=== PATIENT | male | born 1955 | race Caucasian/White ===

== ENCOUNTER 2019-06-28 15:04 | Inpatient (IN) ==
[2019-06-28] MEDS ORDERED: HYDROmorphone 2 MG/1 ML VIAL IV PRN (16:05)
[2019-06-28] MEDS ORDERED: ALBUTEROL/IPRATROPIUM 3 ML NEB RESP TX PRN (16:05)
[2019-06-28] MEDS ORDERED: KETOROLAC 15 MG/1 ML VIAL IV PRN (16:05)
[2019-06-28] MEDS ORDERED: ONDANSETRON 4 MG/2 ML VIAL IV PRN (16:05)
[2019-06-28] MEDS ORDERED: ACETAMINOPHEN 325 MG TABLET PO PRN (16:05)
[2019-06-28] MEDS ORDERED: LACTATED RINGERS 1,000 ML IV ONE (16:09)
[2019-06-28 16:53] LABS: Apearance,Urine CLOUDY (Clear); Bacteria,Urine Occasional /HPF (Few); Bilirubin,Urine Negative (Negative); Blood, Urine Large mg/dL (Negative); Glucose,Urine (UA) Negative (Negative); Ketones,Urine Negative (Negative); Mucus,Urine Occasional /LPF (Occasional); Nitrite,Urine Negative (Negative); Protein,Urine 30 MG/DL; RBC,Urine 643 /HPF (0-4); Urine Color Amber (Yellow); Urine Specific Gravity > 1.060 (1.001-1.035); WBC,Urine 135 /HPF (0-6)
[2019-06-28] MEDS: LACTATED RINGERS 1,000 ML IV SCH (18:46)
[2019-06-28] MEDS ORDERED: ZOLPIDEM 5 MG TABLET PO ONE (20:00)
[2019-06-28] MEDS: LATANOPROST 0.005% OPH SOLN 2.5 ML BOTTLE BOTH EYES SCH (20:52)
[2019-06-28] MEDS: TAMSULOSIN 0.4 MG CAPSULE PO SCH (20:52)
[2019-06-28] MEDS: PIPERACILLIN/TAZOBACTAM 3,375 MG in SODIUM CHLORIDE 0.9% 100 ML IV SCH (22:34)
[2019-06-29] MEDS: PIPERACILLIN/TAZOBACTAM 3,375 MG in SODIUM CHLORIDE 0.9% 100 ML IV SCH ×4 (00:30→23:38)
[2019-06-29 05:55] LABS: Basophils % 0.3 % (0.0-0.8); Eosinophils % 0.4 % (0.00-10.9); Hematocrit 25.1 VOL% (42.0-52.0); Hemoglobin 7.4 GM/DL (14.0-18.0); Immature Granulocytes % 0.7 %; Immature Granulocytes Absolute 0.07 #; Lymphocytes # 1.1 10*3/uL (1.4-4.0); Lymphocytes % 11.3 % (21.2-54.2); Mean Corpuscular HGB Conc 29.5 GM/DL (32-36); Mean Platelet Volume 9.6 FL (9.6-12.0); Neutrophils % 80.3 % (38.7-73.9); Platelet Count 473 T/CUMM (130-400); Red Blood Count 3.26 MC/CUMM (3.8-5.5); Red Cell Distribution Width 14.5 % (9.3-17.3); White Blood Count 9.4 T/CUMM (4-12)
[2019-06-29 06:25] LABS: Albumin 1.8 G/DL (3.4-5.0); Calcium 8.4 MG/DL (8.5-10.1); Osmolality,Calculated 282.3 MOS/KG (273-304); Total Protein 6.2 G/DL (6.4-8.3)
[2019-06-29] MEDS: LACTATED RINGERS 1,000 ML IV SCH ×3 (06:56→11:20)
[2019-06-29] MEDS ORDERED: fentaNYL 100 MCG/2 ML VIAL IV ONE (09:17)
[2019-06-29] MEDS ORDERED: MIDAZOLAM 2 MG/2 ML VIAL IV ONE (09:17)
[2019-06-29] MEDS ORDERED: DIAZEPAM 5 MG TABLET PO ONE (09:17)
[2019-06-29] MEDS: PANTOPRAZOLE 40 MG TABLET PO SCH (09:24)
[2019-06-29] MEDS ORDERED: POTASSIUM CHLORIDE 20 MEQ TABLET PO ONE (10:18)
[2019-06-29] MEDS: HYDROmorphone 2 MG/1 ML VIAL IV PRN ×2 (13:30→18:27)
[2019-06-29] MEDS: TAMSULOSIN 0.4 MG CAPSULE PO SCH (21:54)
[2019-06-29] MEDS: LATANOPROST 0.005% OPH SOLN 2.5 ML BOTTLE BOTH EYES SCH (21:54)
[2019-06-30] MEDS: LACTATED RINGERS 1,000 ML IV SCH ×2 (03:50→18:12)
[2019-06-30 05:43] LABS: Basophils % 0.2 % (0.0-0.8); Eosinophils % 0.5 % (0.00-10.9); Hematocrit 26.1 VOL% (42.0-52.0); Hemoglobin 7.8 GM/DL (14.0-18.0); Immature Granulocytes % 0.8 %; Immature Granulocytes Absolute 0.07 #; Lymphocytes # 0.9 10*3/uL (1.4-4.0); Lymphocytes % 10.8 % (21.2-54.2); Mean Corpuscular HGB Conc 29.9 GM/DL (32-36); Mean Corpuscular Volume 78.1 FL (87-102); Mean Platelet Volume 9.2 FL (9.6-12.0); Monocytes % 4.9 % (1.7-12.7); Neutrophils % 82.8 % (38.7-73.9); Platelet Count 441 T/CUMM (130-400); Red Blood Count 3.34 MC/CUMM (3.8-5.5); Red Cell Distribution Width 14.2 % (9.3-17.3); White Blood Count 8.5 T/CUMM (4-12)
[2019-06-30 06:14] LABS: Calcium 8.3 MG/DL (8.5-10.1); Osmolality,Calculated 282.1 MOS/KG (273-304)
[2019-06-30] MEDS: PANTOPRAZOLE 40 MG TABLET PO SCH (09:03)
[2019-06-30] MEDS: PIPERACILLIN/TAZOBACTAM 3,375 MG in SODIUM CHLORIDE 0.9% 100 ML IV SCH ×2 (09:05→16:43)
[2019-06-30] MEDS: ENOXAPARIN 40 MG/0.4 ML SYRINGE SUBCUT SCH (13:20)
[2019-06-30] MEDS: TAMSULOSIN 0.4 MG CAPSULE PO SCH (20:51)
[2019-06-30] MEDS: LATANOPROST 0.005% OPH SOLN 2.5 ML BOTTLE BOTH EYES SCH ×2 (20:52→22:54)
[2019-07-01] MEDS: PIPERACILLIN/TAZOBACTAM 3,375 MG in SODIUM CHLORIDE 0.9% 100 ML IV SCH ×3 (01:01→08:50)
[2019-07-01 07:38] VITALS: BP 151/81
[2019-07-01] MEDS: PANTOPRAZOLE 40 MG TABLET PO SCH (08:49)
[2019-07-01] MEDS: ENOXAPARIN 40 MG/0.4 ML SYRINGE SUBCUT SCH ×2 (08:49→08:51)
[2019-07-01] MEDS ORDERED: CIPROFLOXACIN 500 MG TABLET PO SCH (09:00)
== END 2019-07-01 09:57 | disposition home health service (06) | DRG 392 ==
LOC: N.ED 15:04 → N.EDINP 16:05 → N.3E 16:47 → N.2E 06-29 17:22
PROVIDERS: ADMIT Surgery; ATTEND Surgery